=== PATIENT | female | born 1995 | race Caucasian/White ===

== ENCOUNTER 2017-01-31 17:14 | Emergency (ER) | payer SELFPAY ==
[~2017-01-31 17:14] MED LIST: ALBUTEROL17 GM INH; ELIMITE60 GM TOP; FLONASE16 GM; IBUPROFEN PO; LORTAB 7.5-5001 TAB PO; NO MEDS; PREDNISONE PO; SILVADENE TOP; ZITHROMAX; ZITHROMAX PO
== END 2017-01-31 17:58 | disposition home or self-care (01) ==
LOC: CFTX 17:14
DX: H66.91 Otitis media, unspecified, right ear (principal); I10 Essential (primary) hypertension; F90.9 Attention-deficit hyperactivity disorder, unspecified type
CPT/HCPCS: 99282